=== PATIENT | male | born 1995 | race Caucasian/White ===

== ENCOUNTER 2016-12-05 12:22 | Emergency (ER) | payer BC ==
[2016-12-05] MEDS ORDERED: LORazepam 0.5 MG TABLET PO STA (12:44)
--- NOTE | 2016-12-05 12:44 | ED Physician Documentation ---
History of Present Illness - Stated complaint Stated Complaint: ANXIETY - Chief complaint Chief Complaint: General - History obtained from History obtained from: Patient - History of Present Illness Timing: Today Pain level max: 0 Pain level now: 0 - Additonal information Additional information: Patient is a 21-year-old male who presents to the emergency department with increasing anxiety today. He lives in [facility]. 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 He has a counselor that he sees that is in [place]. Usually tries meditation and mindfulness practice to help with his anxiety, but could not control his anxiety today. Denies any chest pain, shortness of breath. Did have numbness and tingling in the bilateral upper extremities and currently still has some tingling in the hands. Denies any suicidal or homicidal ideation. Has never been hospitalized for psychiatric disease. Does occasionally use marijuana, but no other drug use. Review of Systems Constitutional: denies: Fever, Chills Respiratory: denies: Cough GI: denies: Nausea, Vomiting, Diarrhea Musculoskeletal: denies: Neck pain, Back pain Neurologic: denies: Headache PD PAST MEDICAL HISTORY - Past Medical History Past Medical History: Yes Psych: Anxiety - Past Surgical History Past Surgical History: No - Present Medications Home Medications: Ambulatory Orders Medication Instructions Recorded Confirmed LORazepam [Ativan] 0.5 mg PO Q6H PRN #7 tablet 12/05/16 - Allergies Allergies/Adverse Reactions: Allergies Allergy/AdvReac Type Severity Reaction Status Date / Time No Known Drug Allergies Allergy Verified 12/05/16 12:41 - Living Situation Living Situation: reports: With family Living Arrangement: reports: At home - Social History Does the pt have substance abuse?: Yes Substance Use and Type: Marijuana - Family History Family history: reports: Non contributory PD ED PE NORMAL - Vitals Vital signs reviewed: Yes - General General: Alert and oriented X 3, No acute distress - HEENT HEENT: Moist mucous membranes - Neck Neck: Supple, no meningeal sign - Cardiac Cardiac: RRR, Strong equal pulses - Respiratory Respiratory: No respiratory distress, Clear bilaterally - Abdomen Abdomen: Soft, Non tender, Non distended - Derm Derm: Warm and dry - Extremities Extremities: No edema - Neuro Neuro: Alert and oriented X 3 - Psych Psych: Other (Appears anxious) Results - Vitals Vitals: Vital Signs - 24 hr 12/05/16 12:32 Temperature 36.1 C L Heart Rate 75 Respiratory 20 Rate Blood Pressure 123/84 H O2 Saturation 98 Oxygen O2 Source Room air PD MEDICAL DECISION MAKING - ED course Complexity details: re-evaluated patient, considered differential, d/w patient, d/w family, d/w internal controls consultant ED course: Patient is a 21-year-old male who presents to the emergency department with anxiety. Feels better after Ativan. Social work was consulted and spoke with the patient, gave resources. We will have him follow-up with a primary care provider when he returns home. Will prescribe a small amount of Ativan for him. Patient counseled regarding signs and symptoms for which I believe and urgent re-evaluation would be necessary. Patient with good understanding of and agreement to plan and is comfortable going home at this time This document was made in part using voice recognition software. While efforts are made to proofread this document, sound alike and grammatical errors may occur. Departure - Departure Disposition: 01 Home, Self Care Clinical Impression: Anxiety Condition: Good Instructions: ED Panic Attack Follow-Up: your,doctor in 1 week [Other] Prescriptions: LORazepam [Ativan] 0.5 mg PO Q6H PRN #7 tablet PRN Reason: Anxiety Comments: Return if you worsen. You need to establish with a primary care provider for further care. Do not drive or operate heavy machinery while taking the Ativan. After Ativan you need to wait at least 6-[address]
[2016-12-05] MEDS ORDERED: LORazepam 0.5 MG TABLET ONE (12:50)
[2016-12-05 13:27] VITALS: BP 112/76
== END 2016-12-05 13:26 | disposition home or self-care (01) ==
LOC: ED 12:22
DX: F41.9 Anxiety disorder, unspecified (principal)
CPT/HCPCS: 99283; A9270